=== PATIENT | male | born 1995 | race African-American/Black ===

== ENCOUNTER 2018-07-08 20:28 | Emergency (ER) | payer OTHER | END 2018-07-08 21:42 | disposition left against medical advice (07) | LOC: ED 20:28 ==

== ENCOUNTER 2018-10-26 17:33 | Emergency (ER) | payer OTHER ==
[~2018-10-26] VITALS: Ht 170.2 cm; Wt 89.8 kg
[2018-10-26 17:47] VITALS: Ht 170.2 cm; Wt 89.8 kg
[2018-10-26 20:19] VITALS: BP 121/52
== END 2018-10-26 20:19 | disposition home or self-care (01) ==
LOC: ED 17:33
DX: M76.62 Achilles tendinitis, left leg (principal)
CPT/HCPCS: J1885

== ENCOUNTER 2019-05-04 13:16 | Emergency (ER) | payer OTHER ==
[~2019-05-04] VITALS: Ht 167.6 cm; Wt 84.8 kg
[2019-05-04 13:55] VITALS: Ht 167.6 cm; Wt 84.8 kg
[2019-05-04 15:00] LABS: BASOPHIL % 0.8 % (0-2); PLATELET COUNT 165 x10^3mcL (130-400); RED CELL DISTRIBUTION WIDTH 13.7 % (11.5-14.5)
[2019-05-04 15:15] LABS: CALCIUM 8.7 mg/dL (8.5-10.1); CHLORIDE SERUM 107 mmol/L (98-107); CREATININE SERUM 1.2 mg/dL (0.7-1.3); GFR1 > 60 mL/min; GLUCOSE SERUM 78 mg/dL (74-106); POTASSIUM SERUM 3.7 mmol/L (3.5-5.1); SODIUM SERUM 145 mmol/L (136-145)
[2019-05-04 15:19] LABS: ALBUMIN 3.7 g/dL (3.4-5.0); ALKALINE PHOSPHATASE 48 U/L (46-116); ALT/SGPT 19 U/L (16-63); AST/SGOT 5 U/L (15-37); BILIRUBIN TOTAL 0.2 mg/dL (0.20-1.00); MAGNESIUM 1.9 mg/dL (1.8-2.4); TOTAL PROTEIN, SERUM 7.3 g/dL (6.4-8.2)
[2019-05-04 18:46] VITALS: BP 112/53
== END 2019-05-04 18:46 | disposition home or self-care (01) ==
LOC: ED 13:16
PROVIDERS: Specialist
DX: R42 Dizziness and giddiness (principal)
CPT/HCPCS: 36415